=== PATIENT | male | born 1940 | race Caucasian/White ===

== ENCOUNTER → 2022-12-12 | Outpatient (CLI) | payer MEDICARE ==
--- NOTE | 2022-12-13 20:58 | MR ---
EXAMINATION TYPE: MR brain wo con DATE OF EXAM: 12/12/2022 7:09 AM CLINICAL INDICATION:Male, 82 years old with history of G45.9 G25.5 R56.9 R55 R20.0; Leg weakness, fal l COMPARISON: None. TECHNIQUE: Multi planar, multi sequence imaging was performed through the brain including: T1, T2, In version recovery, Diffusion weighted imaging, and gradient echo imaging. No gadolinium was given. FINDINGS: Generalized cerebral atrophy with proportional dilation of ventricular system. Focus of T2 shine thro ugh on diffusion-weighted imaging in the left posterior frontal lobe. Prominent perivascular spaces i n the basal ganglia. Scattered foci of high T2 signal intensity are seen within the periventricular white matter. Midline structures show no abnormality. Diffusion-weighted imaging shows no evidence of restricted diffusion. The susceptibility weighted images do not reveal any evidence for micro-hemorr [place]. The bone marrow signal is within normal limits. Paranasal sinuses and mastoid air cells: Trace right mastoid air cell effusion. Visualized orbits: Or bital contents are intact. IMPRESSION: 1. No evidence of intracranial mass or acute/subacute infarct. 2. Nonspecific white matter changes, likely secondary to small vessel ischemic disease. 3. Trace right mastoid air cell effusion.
== END | disposition home or self-care (01) ==
LOC: RADMRIMAIN 06:23
PROVIDERS: ATTEND Family Medicine
DX: G45.9 Transient cerebral ischemic attack, unspecified (principal); G25.5 Other chorea; G93.89 Other specified disorders of brain; H74.8X1 Other specified disorders of right middle ear and mastoid; R56.9 Unspecified convulsions; R55 Syncope and collapse; R20.0 Anesthesia of skin
CPT/HCPCS: 70551

== ENCOUNTER → 2023-02-09 | Outpatient (CLI) | payer MEDICARE ==
[2023-02-09 12:40] LABS: ALT 17 U/L (4-49); AST 26 U/L (17-59); African American GFR (CKD) >90 (>60 ml/min/1.73 sqM); Alkaline Phosphatase 94 U/L (38-126); Anion Gap 11 mmol/L; Blood Urea Nitrogen 13 mg/dL (9-20); Calcium 9.6 mg/dL (8.4-10.2); Carbon Dioxide 27 mmol/L (22-30); Chloride 105 mmol/L (98-107); Glucose 96 mg/dL (74-99); Magnesium 2.1 mg/dL (1.6-2.3); Non-African American GFR(CKD) 79 (>60 ml/min/1.73 sqM); Potassium 4.6 mmol/L (3.5-5.1); Sodium 143 mmol/L (137-145); Total Bilirubin 0.6 mg/dL (0.2-1.3); Total Protein 6.7 g/dL (6.3-8.2)
[2023-02-09 12:45] LABS: NT-Pro-B-Type Natriuretic Pept 431 pg/mL
[2023-02-09 16:05] LABS: HCT 46.2 % (39.6-50.0); MCH 29.4 pg (27.0-32.0); MCHC 32.5 g/dL (32.0-37.0); MCV 90.4 FL (80.0-97.0); Mean Platelet Volume 10.7 FL (9.5-12.2); Platelet Count 289 X 10*3/uL (140-440); RBC 5.11 X 10*6/uL (4.40-5.60); RDW 13.4 % (11.5-14.5); WBC 5.01 X 10*3/uL (4.50-10.00)
[2023-02-09 16:12] LABS: Chol/HDL Ratio 2.89 Ratio; LDL Cholesterol,Calculated 59.9 mg/dL (0.0-131.0)
== END | disposition home or self-care (01) ==
LOC: LABT 09:25
PROVIDERS: ATTEND Student in an Organized Health Care Education/Training Program
DX: I48.91 Unspecified atrial fibrillation (principal); I50.9 Heart failure, unspecified; N18.9 Chronic kidney disease, unspecified
CPT/HCPCS: 80053; 80061; 83036; 83735; 83880; 84443; 85027

== ENCOUNTER 2023-02-12 09:08 | Day surgery (SDC) | payer MEDICARE ==
[~2023-02-12 09:08] MED LIST: HYDROmorphone 0.5 MG/0.5 ML SYRINGE IVP PRN; LACTATED RINGERS 1,000 ML IV SCH; LIDOCAINE 1% (10MG/ML) FOR IV START INTRADERMA PRN; SODIUM CHLORIDE 0.9% 1,000 ML IV SCH
[2023-02-12] MEDS ORDERED: PROPOFOL 10 MG/ML 20 ML VIAL IV ONE (10:24)
[2023-02-12] MEDS ORDERED: LIDOCAINE 1% INJ 10MG/ML (20 ML MDV) ONE (10:24)
[2023-02-12] MEDS ORDERED: SODIUM CHLORIDE 0.9% 500 ML 500 ML IV ONE (10:27)
[2023-02-12 10:29] VITALS: TEMP 98
--- NOTE | 2023-02-12 11:33 | P.TEE ---
Date of Procedure: 02/12/23 Description of Procedure(s): Procedure performed: 1. Transesophageal Echocardiogram. 2. Synchronized Cardioversion. 3. Bubble study Indications: Persistent atrial fibrillation Consent: I have discussed the risks, benefits and alternative therapies for the above-mentioned procedure. The patient has indicated understanding and acceptance of the risks of the procedure. Signed consent was obtained and was placed in the paper chart. Moderate conscious sedation: Moderate conscious sedation was administered by anesthesia, see separate report. Procedural Steps: Timeout was performed in usual fashion. Patient's heart rate, blood pressure, oxygen saturation and ECG were monitored. After achieving appropriate moderate conscious sedation, JOZEF probe was advanced without difficulty and without any immediate complications to the esophagus. JOZEF study was performed with color flow doppler, pulsed wave doppler and continuous wave doppler. Agitated saline bubbles were injected to assess for any intra-atrial shunt. The probe was then removed. After making sure that there is no evidence of intracardiac thrombus, pacer pads were placed on patients chest and back. Synchronized cardioversion was perfromed using [150] J. [1] attempt. Was not successful. Second attempt was performed with 200 J synchronized. This was successful. Post cardioversion patient had sinus rhythm with first-degree. Patient tolerated the procedure well. Patient was transferred to the post procedure area in stable and satisfactory condition. Complications: none FINDINGS Left Atrium: Severe left atrial dilatation. No evidence of mass or thrombus seen Left Atrial Appendage: No evidence of thrombus or mass seen in ALOK. Reduced velocities and left atrial appendage. Inter atrial septum: Intact inter-atrial septum. No evidence of atrial septal defect or patent foramen ovale on color doppler. No evidence of [id number] intracardiac shunting with bubble study Left Ventricle: Normal global LV size and systolic function Right Atrium: Normal overall RV size Right Ventricle: Normal global RV size and systolic function Aortic Valve: Mild thickening of aortic valve leaflets with mild prolapse. Mild aortic regurgitation. Mitral Valve: Mild functional mitral regurgitation due to dilated left atrium Pulmonic Valve: Not well visualized. Tricuspid Valve: Structurally normal. Ascending aorta, Aortic root and Aortic arch: Aortic root measured at 4.2 cm. Ascending aorta measured 4.1 cm Descending aorta: CONCLUSION: No evidence of thrombus in left atrium and left atrial appendage Severe left atrial dilatation Mild functional mitral regurgitation Mild aortic regurgitation Mildly dilated aortic root measuring at 4.2 cm Synchronized cardioversion to follow
--- NOTE | 2023-02-12 11:33 | P.EPPROC ---
- EP Procedure Note Date of Procedure: 02/12/23 Electrophysiology Procedure Note: Synchronous cardioversion Indication atrial fibrillation, persistent After making sure that there is no evidence of intracardiac thrombus, pacer pads were placed on patients chest and back. Synchronized cardioversion was perfromed using [150] J. [1] attempt. Was not successful. Second attempt was performed with 200 J synchronized. This was successful. Post cardioversion patient had sinus rhythm with first-degree. Patient tolerated the procedure well. Patient was transferred to the post procedure area in stable and satisfactory condition. Dr Fabian
[2023-02-12 12:35] VITALS: BP 128/75; PULSE 69; RESP 16
== END 2023-02-12 12:31 | disposition home or self-care (01) ==
LOC: OR 09:08
PROVIDERS: ATTEND Student in an Organized Health Care Education/Training Program
DX: I48.11 Longstanding persistent atrial fibrillation (principal); I10 Essential (primary) hypertension; E78.5 Hyperlipidemia, unspecified; Z79.01 Long term (current) use of anticoagulants; Z79.899 Other long term (current) drug therapy
CPT/HCPCS: 93312; 93320; 93325; 92960; J2001; J2704

== ENCOUNTER 2023-07-07 10:49 | Day surgery (SDC) | payer MEDICARE ==
[~2023-07-07 10:49] MED LIST changes: -LACTATED RINGERS 1,000 ML IV SCH; -LIDOCAINE 1% (10MG/ML) FOR IV START INTRADERMA PRN; -SODIUM CHLORIDE 0.9% 1,000 ML IV SCH
[2023-07-07] MEDS: SODIUM CHLORIDE 0.9% 1,000 ML IV SCH (11:27)
[2023-07-07 12:01] LABS: Basophils % (A) 1 %; Eosinophils # (A) 0.1 k/uL (0-0.7); Eosinophils % (A) 2 %; HCT 45.9 % (39.0-53.0); HGB 15.2 gm/dL (13.0-17.5); Lymphocytes # (A) 1.3 k/uL (1.0-4.8); Lymphocytes % (A) 26 %; MCH 30.3 pg (25.0-35.0); MCV 91.6 fL (80.0-100.0); Monocytes # (A) 0.3 k/uL (0-1.0); Monocytes % (A) 7 %; Neutrophils # (A) 3.2 k/uL (1.3-7.7); Neutrophils % (A) 63 %; Platelet Count 220 k/uL (150-450); RDW 13.9 % (11.5-15.5); WBC 5.1 k/uL (3.8-10.6)
[2023-07-07 12:04] LABS: ALT 25 U/L (4-49); AST 34 U/L (17-59); African American GFR (CKD) >90 (>60 ml/min/1.73 sqM); Albumin 4.3 g/dL (3.5-5.0); Alkaline Phosphatase 105 U/L (38-126); Anion Gap 4 mmol/L; Blood Urea Nitrogen 10 mg/dL (9-20); Calcium 9.3 mg/dL (8.4-10.2); Carbon Dioxide 34 mmol/L (22-30); Chloride 106 mmol/L (98-107); Glucose 101 mg/dL (74-99); Non-African American GFR(CKD) 83 (>60 ml/min/1.73 sqM); Potassium 4.7 mmol/L (3.5-5.1); Sodium 144 mmol/L (137-145); Total Bilirubin 0.5 mg/dL (0.2-1.3)
[2023-07-07] MEDS ORDERED: PROPOFOL 10 MG/ML 20 ML VIAL IV ONE (12:07)
[2023-07-07] MEDS ORDERED: PHENYLEPHRINE-0.9% NACL SYG 1,000 MCG/10 ML SYRINGE ONE (12:07)
[2023-07-07] MEDS ORDERED: LIDOCAINE 1% INJ 10MG/ML (20 ML MDV) ONE (12:07)
[2023-07-07] MEDS ORDERED: SUCCINYLCHOLINE CHLORIDE 200 MG/10 ML VIAL IV ONE (12:07)
[2023-07-07] MEDS ORDERED: fentaNYL (PF) 50 MCG/ML 2 ML AMP ONE (12:07)
[2023-07-07] MEDS ORDERED: HEPARIN SODIUM,PORCINE 10,000 UNIT/ML 1 ML VIAL ONE (12:07)
[2023-07-07] MEDS ORDERED: ePHEDrine 50 MG/ML 1 ML VIAL ONE (12:07)
[2023-07-07] MEDS ORDERED: ATROPINE SULFATE 0.4 MG/ML 1 ML VIAL ONE (12:07)
[2023-07-07] MEDS ORDERED: KETOROLAC 15 MG/ML 1 ML VIAL ONE (12:07)
[2023-07-07] MEDS: LIDOCAINE 1% INJ 10MG/ML (20 ML MDV) SQ ONE (13:04)
[2023-07-07] MEDS: HEPARIN SOD,PORK IN 0.45% NACL 25,000 UNIT in 0.45% NACL 1 250ML.BAG IV ONE (13:08)
[2023-07-07] MEDS: IOPAMIDOL-370 100ML BTL INJ ONE (14:55)
[2023-07-07] MEDS ORDERED: ACETAMINOPHEN TAB 325 MG TAB PO PRN (15:09)
--- NOTE | 2023-07-07 15:15 | P.HPCAR ---
History of Present Illness This is Dr. Cantrell dictating an H/P on this patient The patient was interviewed and examined IMPRESSION / ASSESSMENT: Persistent atrial fibrillation Symptomatic with tiredness and fatigue Enlarged left atrium history of TIA First-degree AV block and sinus bradycardia post cardioversion and therefore flecainide was discontinued Hypertension Today patient is in sinus rhythm PLAN: A-fib ablation Continue Eliquis Stop metoprolol Watch heart rates HPI Patient continues to complain of tiredness and fatigue lack of energy He denies any dizziness or presyncope or syncope On the monitor we detected episodes of AV node Wenckebach block intermittently with long Wenckebach cycles Denies any chest discomfort ROS: No fever chills or rigors, no cough, phlegm or expectoration, no nausea, vomiting or diarrhea, no hematuria, dysuria, no musculoskeletal complaints, no strokes or seizures, no skin lesions. EXAMINATION: Elevated blood pressure reading 203/96 mmHg pulse rate in the 70s Normal heart sounds Normal breath sounds Abdomen is soft nontender No JVD REVIEW OF LABS, ECG & MEDICAL DATA Labs reviewed. Normal white count Normal hemoglobin of 15, normal platelet count of 220,000 Sodium and potassium are both normal 144 and 4.7 BUN is 10 and creatinine 0.8 AST and ALT are normal TSH is 3.3 Physical Exam Vitals: Vital Signs Temp Pulse Resp BP Pulse Ox 07/07/23 11:25 97.2 F L 72 18 203/96 95 Intake and Output 07/07/23 07/07/23 07/07/23 06:59 14:59 22:59 Intake Total 632 Balance 632 Intake: IV 632 Other: Weight 100.2 kg Past Medical History Past Medical History: Atrial Fibrillation, Cancer, CVA/TIA, GERD/Reflux, Hyperlipidemia, Hypertension, Thyroid Disorder Additional Past Medical History / Comment(s): see Dr Cantrell H&P, mini stroke 01/2023 no residuals. hx skin cancer removed. intermittent dizziness mild. no falls History of Any Multi-Drug Resistant Organisms: None Reported Past Surgical History: Joint Replacement Additional Past Surgical History / Comment(s): lt knee and rt hip replaced, cardioversion Past Anesthesia/Blood Transfusion Reactions: No Reported Reaction Additional Past Anesthesia/Blood Transfusion Reaction / Comment(s): daughter slo w to wake . vomiting. Smoking Status: Never smoker - Past Family History Mother Family Medical History: Coronary Artery Disease (CAD) Brother(s) Family Medical History: Coronary Artery Disease (CAD) Sister(s) Family Medical History: CVA/TIA Physical Examination Vital Signs Temp Pulse Resp BP Pulse Ox 07/07/23 11:25 97.2 F L 72 18 203/96 95 Intake and Output 07/07/23 07/07/23 07/07/23 06:59 14:59 22:59 Intake Total 632 Balance 632 Intake: IV 632 Other: Weight 100.2 kg Results 07/07/23 11:26 07/07/23 11:26 Cardiac Enzymes 07/07/23 Range/Units 11:26 AST 34 (17-59) U/L CBC 07/07/23 Range/Units 11:26 WBC 5.1 (3.8-10.6) k/uL RBC 5.00 (4.30-5.90) m/uL Hgb 15.2 (13.0-17.5) gm/dL Hct 45.9 (39.0-53.0) % Plt Count 220 (150-450) k/uL Comprehensive Metabolic Panel 07/07/23 Range/Units 11:26 Sodium 144 (137-145) mmol/L Potassium 4.7 (3.5-5.1) mmol/L Chloride 106 (98-107) mmol/L Carbon Dioxide 34 H (22-30) mmol/L BUN 10 (9-20) mg/dL Creatinine 0.78 (0.66-1.25) mg/dL Glucose 101 H (74-99) mg/dL Calcium 9.3 (8.4-10.2) mg/dL AST 34 (17-59) U/L ALT 25 (4-49) U/L Alkaline Phosphatase 105 (38-126) U/L Total Protein 7.0 (6.3-8.2) g/dL Albumin 4.3 (3.5-5.0) g/dL Current Medications Generic Name Dose Route Start Last Admin Trade Name Freq PRN Reason Stop Dose Admin Acetaminophen 650 mg 07/07/23 15:09 Acetaminophen Tab 325 Mg Tab PO Q6HR PRN Mild Pain (Scale 1 to 3) Apixaban 5 mg 07/08/23 09:00 Apixaban 5 Mg Tab PO DAILY KATYA Protocol Atorvastatin Calcium 40 mg 07/07/23 21:00 Atorvastatin 40 Mg Tab PO HS KATYA Escitalopram Oxalate 10 mg 07/08/23 09:00 Escitalopram 10 Mg Tab PO DAILY KATYA Hydromorphone HCl 0.5 mg 07/07/23 07:00 Hydromorphone 0.5 Mg/0.5 Ml Syringe IVP 07/07/23 23:00 Q5M PRN Phase 1 or 2 - Pain Control Sodium Chloride 1,000 mls @ 20 mls/hr 07/07/23 05:58 07/07/23 11:27 Saline 0.9% IV 08/06/23 05:59 600 mls .Q24H KATYA Administration Lactated Ringer's 1,000 mls @ 20 mls/hr 07/07/23 05:58 Lactated Ringers IV 08/06/23 05:59 .Q24H KATYA Acetaminophen 1,000 mg/ IV 100 mls @ 400 mls/hr 07/07/23 15:09 Solution IVPB 07/07/23 15:23 ONCE ONE Levothyroxine Sodium 50 mcg 07/08/23 06:30 Levothyroxine 50 Mcg Tab PO 0630 KATYA Lisinopril 10 mg 07/07/23 21:00 Lisinopril 10 Mg Tab PO HS KATYA Sodium Chloride 12 ml 07/07/23 15:09 Sodium Chloride 0.9% Flush 10 Ml Syringe IV Q12HR PRN Line Flush Intake and Output 07/07/23 07/07/23 07/07/23 06:59 14:59 22:59 Intake Total 632 Balance 632 Intake: IV 632 Other: Weight 100.2 kg Patient Weight 07/08/23 06:59 Weight 100.2 kg 07/07/23 11:26 07/07/23 11:26
--- NOTE | 2023-07-07 15:42 | P.EPPROC ---
- EP Procedure Note Electrophysiology Procedure Note: PROCEDURE A. fib ablation DIAGNOSIS Persistent atrial fibrillation, symptomatic, refractory to therapy Sinus bradycardia and second-degree AV block intermittently RESULT No left atrial appendage mass seen on intracardiac echo Successful A. fib ablation/pulmonary vein isolation of all veins using cryo- ablation Complete entrance block in all 4 veins confirmed Left atrial septal ablation Left atrial roof ablation No evidence for phrenic nerve injury Esophageal deflection YES, extreme left esophagus PROCEDURE DETAILS Written informed consent prior to procedure. Patient brought to the EP lab. General anesthesia given. Heparin administered. A city maintained above 300 seconds Both groins prepped and draped per protocol and venous sheaths placed. Esophagus intubated, circa catheter for temperature monitoring an endoscope for possible esophageal deflection. Phrenic nerve monitoring performed. Esophageal temperature monitoring performed. Esophageal deflection performed if circa catheter overlapping with the balloon or circa temperature less than 27.5C Intracardiac echocardiography performed. Pericardium evaluated. Left atrial appendage evaluated. Left atrium evaluated along with pulmonary veins Transseptal catheterization performed under fluoroscopic guidance and i ntracardiac echo guidance Cryoablation sheath exchanged, balloon catheter along with achieve catheter placed in the left atrium. Pulmonary veins isolated in the following sequence: Left superior pulmonary vein followed by left inferior pulmonary vein, followed by right inferior pulmonary vein and lastly right superior pulmonary vein. Phrenic nerve stimulation along with capture thresholds within the SVC and right superior pulmonary vein to identify the phrenic nerve proximity to the cryo- balloon. Pulmonary veins isolated and confirmed with entrance and exit block. Phrenic nerve integrity confirmed at the end of the procedure Ablation of the left atrial roof performed with sequential lesions from the left superior to the right superior pulmonary veins. Ridge noted just outside the left superior pulmonary vein. Multiple short 2-minute cryo ablations around this area Ablation of the electrograms noted. Ablation of the left atrial septum performed with cannulation of the inferior br anch of the right superior vein to achieve ablation of the posterior septum of the left atrium. Ablation of electrograms confirmed Diagnostic catheters for the high right atrium, His bundle, coronary sinus placed. LA and RA pressures recorded RA pressure: 13/4/9 LA pressure: 28/2/10 Diagnostic EP study with coronary sinus pacing and recording Baseline measurements: Patient was experiencing AV node Wenckebach cycles. IV atropine was given Thereafter he had one-to-one AV node conduction NJ interval 225 ms, QRS 95 ms, QT 311 ms AH 119 ms and HV interval 46 ms Venous sheaths were removed and hemostasis assured with a closure device. Patient extubated and transferred to recovery Increase procedural time During ablation multiple attempts had to be made to move the esophagus a safe distance of the from the pulmonary vein draining cryoablation, to avoid excessive thermal cooling of the esophagus This took extra time and effort to keep the esophagus a safe distance away from the cryoablation balloon. Multiple attempts/occlusions needed for successful occlusion and cryoablation isolation of the right superior pulmonary vein. Very large right superior pulmonary vein PROCEDURES PERFORMED Diagnostic EP study CS pacing and recording Left and right transseptal catheterization Catheter the mapping of the tachycardia Intracardiac echocardiography Pulmonary vein isolation with transseptal and comprehensive EPS, 10613 Drug infusion, +[id number] Left atrial septal ablation Left atrial roof line, +[id number] Linear ablation, left atrium, +[id number]
--- NOTE | 2023-07-07 15:44 | P.PRLE ---
RE: FuadGaurang davis Dear [place] Mr. Chawla underwent successful A-fib ablation with isolation of all pulmonary veins as well as ablation of the left atrial septum and left atrial roof. He did well during the procedure Today he was in sinus rhythm and during the procedure he would repeatedly go into AV node Wenckebach block. Therefore metoprolol was discontinued completely He is quite hypertensive and I am increasing the dose of FENG inhibitors He seems to be taking his Eliquis once daily and I have asked him to change that to 5 mg twice daily since he is already had a CVA in the past Thank you for entrusting me with the care of the patient Warm regards Sincerely Sonny Cantrell
[2023-07-07] MEDS: ACETAMINOPHEN IV (For NPO) 1,000 MG in EMPTY BAG 1 BAG IVPB ONE (16:27)
[2023-07-07] MEDS: ONDANSETRON 4 MG/2 ML VIAL IVP ONE (18:38)
[2023-07-07] MEDS: LACTATED RINGERS 1,000 ML IV SCH (18:38)
[2023-07-07] MEDS: DEXAMETHASONE SOD PHOSPHATE 4 MG/ML 1 ML VIAL IV ONE (18:38)
[2023-07-07] MEDS ORDERED: lisinopriL 10 MG TAB PO SCH (21:00)
[2023-07-07] MEDS: lisinopriL 10 MG TAB PO SCH (21:00)
[2023-07-07] MEDS: ATORVASTATIN 40 MG TAB PO SCH (21:00)
[2023-07-07] MEDS: APIXABAN 5 MG TAB PO SCH (21:00)
[2023-07-08] MEDS: LEVOTHYROXINE 50 MCG TAB PO SCH (05:50)
[2023-07-08 08:16] VITALS: BP 114/79; PULSE 85; RESP 16; TEMP 97.7
[2023-07-08] MEDS: ESCITALOPRAM 10 MG TAB PO SCH (08:43)
--- NOTE | 2023-07-09 16:47 | P.DS ---
Providers Attending physician: Sonny Cantrell Primary care physician: [facility] Course: Patient underwent successful A-fib ablation yesterday He also had evidence for AV node disease with intermittent AV node Wenckebach block metoprolol was discontinued completely His blood pressure was elevated and therefore the dose of lisinopril was increased to 10 mg twice daily Postoperatively he is doing well heart sounds are normal breath sounds are clear 112/73 mmHg pulse rate in the 80s Twelve-lead EKG shows evidence for a second-degree AV block but without any significant bradycardia or pauses on twelve-lead EKG He is doing well his groins have healed well he has no symptoms Impression Persistent atrial fibrillation Status post A-fib ablation with PVI and left atrial roof and left atrial septal ablation 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 Beta-blockers discontinued Hypertension, dose of lisinopril increased to 10 mg twice daily Plan discharge home Continue anticoagulation Discontinue metoprolol Low-salt diet Follow-up in a week Patient Condition at Discharge: Good Plan - Discharge Summary Discharge Rx Participant: No New Discharge Prescriptions: New Apixaban [Eliquis] 5 mg PO BID #180 tab lisinopriL [Prinivil] 10 mg PO BID #180 tab Discontinued lisinopriL [Zestril] 10 mg PO HS Metoprolol Succinate (ER) [Toprol Xl] 12.5 mg PO HS Apixaban [Eliquis] 5 mg PO DAILY No Action Escitalopram [Lexapro] 10 mg PO DAILY Ergocalciferol [Vitamin D2 (1250 Mcg = 13844 Iu)] 1 tab PO WEEKLY Unk Otc Prilosec 1 tab PO DAILY PRN PRN Reason: Heartburn Levothyroxine Sodium [Synthroid] 50 mcg PO DAILY Atorvastatin [Lipitor] 40 mg PO HS Discharge Medication List Atorvastatin [Lipitor] 40 mg PO HS 02/10/23 [History] Ergocalciferol [Vitamin D2 (1250 Mcg = 26427 Iu)] 1 tab PO WEEKLY 02/10/23 [History] Escitalopram [Lexapro] 10 mg PO DAILY 02/10/23 [History] Levothyroxine Sodium [Synthroid] 50 mcg PO DAILY 07/03/23 [History] Unk Otc Prilosec 1 tab PO DAILY PRN 07/03/23 [History] Apixaban [Eliquis] 5 mg PO BID #180 tab 07/08/23 [Rx] lisinopriL [Prinivil] 10 mg PO BID #180 tab 07/08/23 [Rx] Follow up Appointment(s)/Referral(s): Sonny Cantrell MD [STAFF PHYSICIAN] - 07/16/23 1:45 pm Activity/Diet/Wound Care/Special Instructions: Post EP study - Ablation instructions 1. Keep access sites dry for 2 days. 2. No heavy lifting or straining for 2 days. 3. Avoid bending the hips repeatedly for 2 days. 4. You may go up and down stairs slowly Call if the following is noted 1. Bleeding, increasing swelling or pain at the access sites. 2. Increasing chest discomfort, especially upon taking a deep breath. 3. Increasing shortness of breath, at rest or with exertion. 4. Undue cough / phlegm 5. Difficulty or pain while swallowing. 6. Pain or change in color in the extremities. 7. Fever, chills, rigors. 8. Increasing headache or neurologic symptoms. 9. Dizziness, fainting, palpitations Eliquis must be taken 5 mg twice daily Please confirm with patient that he understands this He has had a history of stroke in the past Discontinue metoprolol completely Lisinopril 10mg twice a day Discharge Disposition: HOME SELF-CARE
== END 2023-07-08 12:15 | disposition home or self-care (01) ==
LOC: CATHEP 10:49 → 6NMEDSUR 15:03 → CATHEP 07-08 12:15
PROVIDERS: ATTEND Internal Medicine Clinical Cardiac Electrophysiology
DX: I48.0 Paroxysmal atrial fibrillation (principal); I10 Essential (primary) hypertension; I44.1 Atrioventricular block, second degree; I48.19 Other persistent atrial fibrillation; E78.5 Hyperlipidemia, unspecified; K21.9 Gastro-esophageal reflux disease without esophagitis; E07.9 Disorder of thyroid, unspecified; Z86.73 Personal history of transient ischemic attack (TIA), and cerebral infarction without residual deficits; Z79.01 Long term (current) use of anticoagulants; Z79.899 Other long term (current) drug therapy; Z96.641 Presence of right artificial hip joint; Z82.49 Family history of ischemic heart disease and other diseases of the circulatory system; Z82.3 Family history of stroke
CPT/HCPCS: 93623; 93656; 93657; 86900; 86901; 80053; 84443; 85025; 86850; C1894 ×2; C1769 ×3; C1760 ×2; C1730 ×2; C1759; C1893; C1733; C1766; J2001; J0131; Q9967; J1644